=== PATIENT | female | born 1980 | race Two or more races ===

== ENCOUNTER 2017-11-23 23:46 | Day surgery (SDC) | payer OTHER ==
[~2017-11-23] VITALS: Ht 152.4 cm; Wt 62.6 kg
[2017-11-24] MEDS ORDERED: PRENA1 TRUE CO1 EACH (00:20)
[2017-11-24] MEDS ORDERED: ATABEX DHA 200200 MG (00:21)
== END 2017-11-24 13:23 | disposition home or self-care (01) ==
LOC: ER 23:46 → CIR.AMB 11-24 07:43
DX: O02.1 Missed abortion (principal)